=== PATIENT | male | born 1965 | race Caucasian/White ===

== ENCOUNTER 2017-06-27 00:02 | Inpatient (IN) | payer OTHER ==
[2017-06-27] MEDS ORDERED: DOCUSATE SODIUM 100 MG CAP PO (01:00)
[2017-06-27] MEDS ORDERED: BISACODYL (EC) 5 MG TAB PO (01:00)
[2017-06-27] MEDS ORDERED: ONDANSETRON 4 MG INJ IV (01:00)
[2017-06-27] MEDS ORDERED: ACETAMINOPHEN 325 MG TAB PO (01:00)
[2017-06-27] MEDS ORDERED: NITROGLYCERIN (SL) 0.4 MG TAB SL (01:00)
[2017-06-27 01:29] LABS: ADD MAN DIFF? NO
[2017-06-27 01:34] LABS: WHITE BLOOD COUNT 6.9 10^3/ul (4.8-10.8)
[2017-06-27 01:34] LABS: BASOPHILS % 0.4 % (0.0-2.0); EOSINOPHILS # 0.2 10^3/ul (0.0-0.5); HEMATOCRIT 24.3 % (42.0-52.0); HEMOGLOBIN 7.7 g/dl (14.0-18.0); LYMPHOCYTES % 14.6 % (15.0-51.0); MEAN CORPUSCULAR HEMOGLOBIN 28.8 pg (29.0-33.0); MEAN CORPUSCULAR HGB CONC 31.7 g/dl (32.0-37.0); MEAN PLATELET VOLUME 10.3 fl (7.4-10.4); MONOCYTE # 0.7 10^3/ul (0.3-0.9); NEUTROPHILS % 71.6 % (39.0-77.0); PLATELET COUNT 163 10^3/UL (140-415); RED BLOOD COUNT 2.67 10^6/ul (4.70-6.10); RED CELL DISTRIBUTION WIDTH 13.2 % (11.5-14.5)
[2017-06-27] MEDS: FUROSEMIDE 40 MG INJ IV ×3 (01:37→17:54)
[2017-06-27] MEDS: METOLAZONE 2.5 MG TAB PO (01:37)
[2017-06-27] MEDS: NACL 0.9% 3 ML SYG IV (01:38)
[2017-06-27 02:10] LABS: MAGNESIUM 1.9 mg/dl (1.7-2.5)
[2017-06-27 02:13] LABS: ALANINE AMINOTRANSFERASE 23 IU/L (13-69); ALBUMIN 3.1 g/dl (3.3-4.9); ALBUMIN/GLOBULIN RATIO 1.14; ALKALINE PHOSPHATASE 75 IU/L (42-121); ANION GAP 12 (8-16); ASPARTATE AMINO TRANSFERASE 12 IU/L (15-46); BILIRUBIN,INDIRECT 0.1 mg/dl (0-1.1); BILIRUBIN,TOTAL 0.1 mg/dl (0.2-1.3); BLOOD UREA NITROGEN 20 mg/dl (7-20); CALCIUM 9.2 mg/dl (8.4-10.2); CARBON DIOXIDE 25 mmol/L (21-31); CHLORIDE 109 mmol/L (97-110); CREATININE 2.46 mg/dl (0.61-1.24); GLUCOSE 125 mg/dl (70-220); POTASSIUM 5.5 mmol/L (3.5-5.1); SODIUM 140 mmol/L (135-144); TOTAL PROTEIN 5.8 g/dl (6.1-8.1)
[2017-06-27 02:31] LABS: HEMOGLOBIN A1C 6.6 % (0-5.9)
[2017-06-27 02:45] LABS: OSMOLALITY 293 mOsm/kg (280-295)
[2017-06-27] MEDS ORDERED: GLUCAGON 1 MG INJ IM (02:45)
[2017-06-27] MEDS ORDERED: DEXTROSE 50% 50 ML SYRINGE IV ×2 (02:45)
[2017-06-27] MEDS ORDERED: GLUCOSE GEL 15 GRAM TUBE BUCCAL (02:45)
[2017-06-27] MEDS ORDERED: GLUCOSE GEL 15 GRAM TUBE PO ×2 (02:45)
[2017-06-27] MEDS: INSULIN ASPART [NOVOLOG] 3 ML PEN SC ×4 (08:00→20:37)
[2017-06-27] MEDS: METOPROLOL 50 MG TAB PO ×2 (08:30→20:31)
[2017-06-27 12:11] LABS: ADD MAN DIFF? NO
[2017-06-27 12:13] LABS: BASOPHILS % 0.4 % (0.0-2.0); EOSINOPHILS # 0.2 10^3/ul (0.0-0.5); EOSINOPHILS % 2.9 % (0.0-7.0); HEMATOCRIT 24.7 % (42.0-52.0); HEMOGLOBIN 7.9 g/dl (14.0-18.0); LYMPHOCYTES # 1.3 10^3/ul (0.8-2.9); MEAN CORPUSCULAR HEMOGLOBIN 29.3 pg (29.0-33.0); MEAN CORPUSCULAR VOLUME 91.5 fl (82.0-101.0); MEAN PLATELET VOLUME 11.3 fl (7.4-10.4); MONOCYTE # 0.7 10^3/ul (0.3-0.9); MONOCYTES % 7.7 % (0.0-11.0); NEUTROPHIL # 6.2 10^3/ul (1.6-7.5); NEUTROPHILS % 73.6 % (39.0-77.0); PLATELET COUNT 177 10^3/UL (140-415); RED CELL DISTRIBUTION WIDTH 13.2 % (11.5-14.5)
[2017-06-27 12:13] LABS: WHITE BLOOD COUNT 8.4 10^3/ul (4.8-10.8)
[2017-06-27 12:51] LABS: ANION GAP 11 (8-16); BLOOD UREA NITROGEN 21 mg/dl (7-20); CALCIUM 9.1 mg/dl (8.4-10.2); CARBON DIOXIDE 26 mmol/L (21-31); CHLORIDE 109 mmol/L (97-110); CREATININE 2.57 mg/dl (0.61-1.24); GLUCOSE 124 mg/dl (70-220); POTASSIUM 5.5 mmol/L (3.5-5.1); SODIUM 140 mmol/L (135-144)
[2017-06-27 13:43] LABS: ADD UMIC NO; UR ASCORBIC ACID NEGATIVE (NEGATIVE); UR BILIRUBIN (Dip) NEGATIVE (NEGATIVE); UR BLOOD (Dip) NEGATIVE (NEGATIVE); UR CLARITY CLEAR (CLEAR); UR COLOR STRAW (YELLOW); UR GLUCOSE (Dip) NEGATIVE (NEGATIVE); UR KETONES (Dip) NEGATIVE (NEGATIVE); UR LEUKOCYTE ESTERASE (Dip) NEGATIVE Leu/ul (NEGATIVE); UR NITRITE (Dip) NEGATIVE (NEGATIVE); UR SPECIFIC GRAVITY (Dip) 1.005 (1.003-1.030); UR TOTAL PROTEIN (Dip) NEGATIVE (NEGATIVE); UR UROBILINOGEN (Dip) NEGATIVE (NEGATIVE)
[2017-06-27 14:00] LABS: CREATININE,URINE RANDOM 25.72 mg/dl (20-370)
[2017-06-27 14:00] LABS: SODIUM,URINE RANDOM 126 mmol/L (30-90)
[2017-06-27 14:21] LABS: OSMOLALITY,URINE 306 mOsm/kg (250-1200)
[2017-06-27] MEDS: PSYLLIUM 28% PACKET PO (16:34)
[2017-06-27] MEDS: DOCUSATE SODIUM 100 MG CAP PO (20:28)
[2017-06-28] MEDS: ACCU-CHEK XX (01:35)
[2017-06-28] MEDS: FUROSEMIDE 40 MG INJ IV ×2 (05:35→17:12)
[2017-06-28 06:15] LABS: ADD MAN DIFF? NO
[2017-06-28 06:35] LABS: MAGNESIUM 1.6 mg/dl (1.7-2.5)
[2017-06-28 06:48] LABS: ALANINE AMINOTRANSFERASE 20 IU/L (13-69); ALBUMIN 3.1 g/dl (3.3-4.9); ALBUMIN/GLOBULIN RATIO 1.14; ALKALINE PHOSPHATASE 65 IU/L (42-121); ANION GAP 12 (8-16); ASPARTATE AMINO TRANSFERASE < 8 IU/L (15-46); BILIRUBIN,INDIRECT 0.2 mg/dl (0-1.1); BILIRUBIN,TOTAL 0.2 mg/dl (0.2-1.3); BLOOD UREA NITROGEN 22 mg/dl (7-20); CALCIUM 8.6 mg/dl (8.4-10.2); CARBON DIOXIDE 27 mmol/L (21-31); CHLORIDE 107 mmol/L (97-110); GLUCOSE 100 mg/dl (70-220); POTASSIUM 4.9 mmol/L (3.5-5.1); SODIUM 141 mmol/L (135-144); TOTAL PROTEIN 5.8 g/dl (6.1-8.1)
[2017-06-28 07:29] LABS: WHITE BLOOD COUNT 6.1 10^3/ul (4.8-10.8)
[2017-06-28 07:29] LABS: BASOPHIL # 0.1 10^3/ul (0.0-0.1); BASOPHILS % 0.8 % (0.0-2.0); EOSINOPHILS # 0.2 10^3/ul (0.0-0.5); EOSINOPHILS % 3.1 % (0.0-7.0); HEMATOCRIT 23.5 % (42.0-52.0); HEMOGLOBIN 7.4 g/dl (14.0-18.0); LYMPHOCYTES # 1.4 10^3/ul (0.8-2.9); LYMPHOCYTES % 23.5 % (15.0-51.0); MEAN CORPUSCULAR HEMOGLOBIN 28.8 pg (29.0-33.0); MEAN CORPUSCULAR HGB CONC 31.5 g/dl (32.0-37.0); MEAN CORPUSCULAR VOLUME 91.4 fl (82.0-101.0); MEAN PLATELET VOLUME 11.6 fl (7.4-10.4); MONOCYTE # 0.7 10^3/ul (0.3-0.9); MONOCYTES % 11.6 % (0.0-11.0); NEUTROPHIL # 3.7 10^3/ul (1.6-7.5); NEUTROPHILS % 60.7 % (39.0-77.0); PLATELET COUNT 177 10^3/UL (140-415); RED BLOOD COUNT 2.57 10^6/ul (4.70-6.10); RED CELL DISTRIBUTION WIDTH 13.1 % (11.5-14.5)
[2017-06-28] MEDS: INSULIN ASPART [NOVOLOG] 3 ML PEN SC ×4 (07:54→20:56)
[2017-06-28] MEDS: PSYLLIUM 28% PACKET PO (08:16)
[2017-06-28] MEDS: DOCUSATE SODIUM 100 MG CAP PO ×2 (08:16→20:56)
[2017-06-28] MEDS: METOPROLOL 50 MG TAB PO ×2 (08:17→20:57)
[2017-06-28] MEDS: MAGNESIUM SULFATE 2 GM/50 ML 50 ML IVPB (10:06)
[2017-06-28 12:59] LABS: HEPATITIS B SURFACE ANTIGEN NEGATIVE (NEGATIVE)
[2017-06-28 13:16] LABS: HEPATITIS B SURFACE ANTIBODY NEGATIVE (NEGATIVE)
[2017-06-28 13:16] LABS: HEPATITIS C VIRAL ANTIBODY NEGATIVE (NEGATIVE)
[2017-06-28 21:45] LABS: RAPID PLASMA REAGIN NONREACTIVE (NR)
[2017-06-29] MEDS: ACCU-CHEK XX (01:28)
[2017-06-29] MEDS: FUROSEMIDE 40 MG INJ IV ×2 (05:15→17:10)
[2017-06-29 06:09] LABS: ADD MAN DIFF? NO
[2017-06-29 06:17] LABS: BASOPHILS % 0.6 % (0.0-2.0); EOSINOPHILS # 0.3 10^3/ul (0.0-0.5); EOSINOPHILS % 4.8 % (0.0-7.0); HEMOGLOBIN 7.6 g/dl (14.0-18.0); LYMPHOCYTES # 1.6 10^3/ul (0.8-2.9); LYMPHOCYTES % 22.9 % (15.0-51.0); MEAN CORPUSCULAR HEMOGLOBIN 29.9 pg (29.0-33.0); MEAN CORPUSCULAR VOLUME 90.6 fl (82.0-101.0); MEAN PLATELET VOLUME 10.9 fl (7.4-10.4); MONOCYTE # 0.8 10^3/ul (0.3-0.9); NEUTROPHIL # 4.1 10^3/ul (1.6-7.5); NEUTROPHILS % 59.4 % (39.0-77.0); PLATELET COUNT 181 10^3/UL (140-415); RED BLOOD COUNT 2.54 10^6/ul (4.70-6.10)
[2017-06-29 06:17] LABS: WHITE BLOOD COUNT 6.9 10^3/ul (4.8-10.8)
[2017-06-29 06:43] LABS: ALANINE AMINOTRANSFERASE 22 IU/L (13-69); ALBUMIN 3.2 g/dl (3.3-4.9); ALBUMIN/GLOBULIN RATIO 1.14; ALKALINE PHOSPHATASE 69 IU/L (42-121); ANION GAP 14 (8-16); ASPARTATE AMINO TRANSFERASE 9 IU/L (15-46); BILIRUBIN,INDIRECT 0.1 mg/dl (0-1.1); BILIRUBIN,TOTAL 0.1 mg/dl (0.2-1.3); BLOOD UREA NITROGEN 27 mg/dl (7-20); CALCIUM 8.7 mg/dl (8.4-10.2); CARBON DIOXIDE 27 mmol/L (21-31); CHLORIDE 106 mmol/L (97-110); CREATININE 2.71 mg/dl (0.61-1.24); GLUCOSE 110 mg/dl (70-220); POTASSIUM 4.7 mmol/L (3.5-5.1); SODIUM 142 mmol/L (135-144)
[2017-06-29 06:45] LABS: ANION GAP 16 (8-16); BLOOD UREA NITROGEN 27 mg/dl (7-20); CALCIUM 8.7 mg/dl (8.4-10.2); CARBON DIOXIDE 27 mmol/L (21-31); CHLORIDE 103 mmol/L (97-110); CREATININE 2.77 mg/dl (0.61-1.24); GLUCOSE 111 mg/dl (70-220); PHOSPHORUS 5.4 mg/dl (2.5-4.9); POTASSIUM 4.6 mmol/L (3.5-5.1); SODIUM 141 mmol/L (135-144)
[2017-06-29 06:46] LABS: MAGNESIUM 1.9 mg/dl (1.7-2.5)
[2017-06-29 07:51] LABS: CREATININE,URINE RANDOM 58.76 mg/dl (20-370)
[2017-06-29] MEDS: INSULIN ASPART [NOVOLOG] 3 ML PEN SC ×4 (08:00→21:00)
[2017-06-29 08:19] LABS: SODIUM,URINE RANDOM 113 mmol/L (30-90)
[2017-06-29] MEDS: DOCUSATE SODIUM 100 MG CAP PO ×2 (08:24→21:59)
[2017-06-29] MEDS: PSYLLIUM 28% PACKET PO (08:24)
[2017-06-29] MEDS: METOPROLOL 50 MG TAB PO ×2 (08:25→21:59)
[2017-06-29] MEDS: METOLAZONE 5 MG TAB PO (09:01)
[2017-06-29] MEDS: NIFEdipine (XL) 30 MG TAB PO (09:45)
[2017-06-29] MEDS: DOXAZOSIN 1 MG TAB PO (10:50)
[2017-06-29] MEDS: LANTHANUM 500 MG CHEW PO ×2 (11:46→17:09)
[2017-06-29 12:47] LABS: COLLECTION PERIOD 24 hrs
[2017-06-29 13:18] LABS: COLLECTION PERIOD 24 hrs
[2017-06-29 13:19] LABS: VOLUME 3750 ml/24hrs
[2017-06-29 13:21] LABS: SCRET 2.77 mg/dl (0.61-1.24)
[2017-06-29 13:22] LABS: VOLUME 3750 mls
[2017-06-29 13:23] LABS: 24HR URINE TOTAL PROTEIN > 600.0 mg/24hrs (42.0-225.0)
[2017-06-29 13:43] LABS: CREATININE CLEARANCE 30.2 mls/min (84.0-162.0); CREATININE,URINE RANDOM 32.13 mg/dl (20-370)
[2017-06-30] MEDS: DOXAZOSIN 2 MG TAB PO ×2 (00:54→21:29)
[2017-06-30] MEDS: ACCU-CHEK XX (01:09)
[2017-06-30] MEDS: FUROSEMIDE 40 MG INJ IV ×2 (06:53→17:08)
[2017-06-30] MEDS: INSULIN ASPART [NOVOLOG] 3 ML PEN SC ×4 (08:00→21:00)
[2017-06-30] MEDS: LANTHANUM 500 MG CHEW PO ×3 (08:25→17:08)
[2017-06-30] MEDS: DOCUSATE SODIUM 100 MG CAP PO ×2 (08:26→21:28)
[2017-06-30] MEDS: PSYLLIUM 28% PACKET PO (08:26)
[2017-06-30] MEDS: METOPROLOL 50 MG TAB PO ×2 (08:27→21:29)
[2017-06-30 08:48] LABS: ADD MAN DIFF? NO
[2017-06-30 08:52] LABS: BASOPHILS % 0.5 % (0.0-2.0); EOSINOPHILS # 0.3 10^3/ul (0.0-0.5); EOSINOPHILS % 6.2 % (0.0-7.0); LYMPHOCYTES # 1.3 10^3/ul (0.8-2.9); LYMPHOCYTES % 23.2 % (15.0-51.0); MEAN CORPUSCULAR HEMOGLOBIN 28.6 pg (29.0-33.0); MEAN CORPUSCULAR VOLUME 89.3 fl (82.0-101.0); MEAN PLATELET VOLUME 11.2 fl (7.4-10.4); MONOCYTE # 0.5 10^3/ul (0.3-0.9); MONOCYTES % 9.8 % (0.0-11.0); NEUTROPHIL # 3.3 10^3/ul (1.6-7.5); NEUTROPHILS % 59.9 % (39.0-77.0); PLATELET COUNT 196 10^3/UL (140-415); RED CELL DISTRIBUTION WIDTH 13.1 % (11.5-14.5)
[2017-06-30 08:52] LABS: WHITE BLOOD COUNT 5.5 10^3/ul (4.8-10.8)
[2017-06-30] MEDS ORDERED: NIFEdipine (XL) 30 MG TAB PO (09:00)
[2017-06-30 09:18] LABS: MAGNESIUM 1.6 mg/dl (1.7-2.5)
[2017-06-30 09:21] LABS: ALANINE AMINOTRANSFERASE 21 IU/L (13-69); ALBUMIN 3.6 g/dl (3.3-4.9); ALBUMIN/GLOBULIN RATIO 1.24; ALKALINE PHOSPHATASE 74 IU/L (42-121); ANION GAP 13 (8-16); ASPARTATE AMINO TRANSFERASE 13 IU/L (15-46); BILIRUBIN,INDIRECT 0.2 mg/dl (0-1.1); BILIRUBIN,TOTAL 0.2 mg/dl (0.2-1.3); BLOOD UREA NITROGEN 30 mg/dl (7-20); CALCIUM 9.1 mg/dl (8.4-10.2); CARBON DIOXIDE 31 mmol/L (21-31); CHLORIDE 101 mmol/L (97-110); GLUCOSE 105 mg/dl (70-220); POTASSIUM 4.5 mmol/L (3.5-5.1); SODIUM 140 mmol/L (135-144); TOTAL PROTEIN 6.5 g/dl (6.1-8.1)
[2017-06-30 09:22] LABS: PHOSPHORUS 4.7 mg/dl (2.5-4.9)
[2017-06-30] MEDS: METOLAZONE 5 MG TAB PO (09:41)
[2017-06-30] MEDS: MAGNESIUM SULFATE 2 GM/50 ML 50 ML IVPB (13:54)
[2017-06-30 14:48] LABS: CREATININE, RANDOM URINE 70 mg/dL (20-370); MICROALBUMIN 21.8 mg/dL; MICROALBUMIN/CREATININE RATIO 311 (<30)
[2017-06-30 15:31] LABS: CREATININE, RANDOM URINE 30 mg/dL (20-370); MICROALBUMIN 10.4 mg/dL; MICROALBUMIN/CREATININE RATIO 347 (<30)
[2017-07-01] MEDS: ACCU-CHEK XX (01:32)
[2017-07-01] MEDS: FUROSEMIDE 40 MG INJ IV (05:39)
[2017-07-01 05:56] LABS: ADD MAN DIFF? NO
[2017-07-01 06:05] LABS: BASOPHILS % 0.7 % (0.0-2.0); EOSINOPHILS # 0.3 10^3/ul (0.0-0.5); EOSINOPHILS % 5.5 % (0.0-7.0); HEMATOCRIT 23.6 % (42.0-52.0); HEMOGLOBIN 7.8 g/dl (14.0-18.0); LYMPHOCYTES # 1.4 10^3/ul (0.8-2.9); LYMPHOCYTES % 22.6 % (15.0-51.0); MEAN CORPUSCULAR HGB CONC 33.1 g/dl (32.0-37.0); MEAN CORPUSCULAR VOLUME 87.7 fl (82.0-101.0); MEAN PLATELET VOLUME 10.5 fl (7.4-10.4); MONOCYTE # 0.7 10^3/ul (0.3-0.9); MONOCYTES % 11.6 % (0.0-11.0); NEUTROPHIL # 3.6 10^3/ul (1.6-7.5); NEUTROPHILS % 59.3 % (39.0-77.0); PLATELET COUNT 185 10^3/UL (140-415); RED BLOOD COUNT 2.69 10^6/ul (4.70-6.10); RED CELL DISTRIBUTION WIDTH 12.9 % (11.5-14.5)
[2017-07-01 06:32] LABS: ALANINE AMINOTRANSFERASE 21 IU/L (13-69); ALBUMIN 3.3 g/dl (3.3-4.9); ALBUMIN/GLOBULIN RATIO 1.22; ALKALINE PHOSPHATASE 68 IU/L (42-121); ANION GAP 12 (8-16); ASPARTATE AMINO TRANSFERASE 13 IU/L (15-46); BILIRUBIN,INDIRECT 0.2 mg/dl (0-1.1); BILIRUBIN,TOTAL 0.2 mg/dl (0.2-1.3); BLOOD UREA NITROGEN 33 mg/dl (7-20); CARBON DIOXIDE 32 mmol/L (21-31); CHLORIDE 100 mmol/L (97-110); CREATININE 2.44 mg/dl (0.61-1.24); GLUCOSE 101 mg/dl (70-220); POTASSIUM 4.1 mmol/L (3.5-5.1); SODIUM 140 mmol/L (135-144)
[2017-07-01 07:30] LABS: PHOSPHORUS 4.4 mg/dl (2.5-4.9)
[2017-07-01] MEDS: INSULIN ASPART [NOVOLOG] 3 ML PEN SC ×2 (08:00→11:44)
[2017-07-01] MEDS: PSYLLIUM 28% PACKET PO (08:10)
[2017-07-01] MEDS: METOPROLOL 50 MG TAB PO (08:11)
[2017-07-01] MEDS: LANTHANUM 500 MG CHEW PO ×2 (08:11→12:15)
[2017-07-01] MEDS: DOCUSATE SODIUM 100 MG CAP PO (08:12)
[2017-07-01] MEDS: ISOSORBIDE MONONITRATE(SR)30 MG TAB PO (09:29)
[2017-07-01] MEDS ORDERED: BUMETANIDE 1 MG TAB PO (18:00)
== END 2017-07-01 15:30 | disposition home or self-care (01) | DRG 684 ==
LOC: MS4 00:02
PROVIDERS: Family Medicine
DX: N17.9 Acute kidney failure, unspecified (principal); I12.9 Hypertensive chronic kidney disease with stage 1 through stage 4 chronic kidney disease, or unspecified chronic kidney disease; E11.22 Type 2 diabetes mellitus with diabetic chronic kidney disease; E87.5 Hyperkalemia; N18.3 Chronic kidney disease, stage 3 (moderate); E78.5 Hyperlipidemia, unspecified; D63.1 Anemia in chronic kidney disease; E66.9 Obesity, unspecified; Z68.31 Body mass index [BMI] 31.0-31.9, adult; Z79.4 Long term (current) use of insulin
CPT/HCPCS: 71045; 76775; 76870; 80048; 80053; 81003; 82043; 82575; 82962; 83036; 83735; 83930; 83935; 84100; 84155; 84156; 84300; 84443; 85025; 86592; 86706; 86708; 86803; 87340; 93005; 93306; 93970

== ENCOUNTER 2018-08-19 10:02 | Emergency (ER) | payer OTHER ==
[2018-08-19] MEDS: NICARDipine HCL 30 MG CAPSULE PO (10:36)
== END 2018-08-19 11:51 | disposition home or self-care (01) ==
LOC: E/R 10:02
DX: I10 Essential (primary) hypertension (principal); E11.9 Type 2 diabetes mellitus without complications; Z79.4 Long term (current) use of insulin
CPT/HCPCS: 93005; 99283-25